=== PATIENT | male | born 1955 | race Caucasian/White ===

== ENCOUNTER 2023-09-08 14:49 | Outpatient (CLI) | payer BC, SELFPAY ==
--- NOTE | ~2023-09-08 | MR_ITS ---
EXAMINATION: MR lumbar spine wo/w con DATE: 09/08/2023 16:08 INDICATION: Lumbar vertebral fracture TECHNIQUE: Magnetic resonance imaging (MRI) of the lumbar spine was performed without and with 16 mL Multihance intravenous contrast. Sequences included sagittal T2-weighted FSE, sagittal T2-weighted FS FSE, and sagittal and axial T1-weighted FSE. Postcontrast sequences included axial T2-weighted FSE, sagittal T1-weighted FSE, and axial and sagittal T1-weighted FS FSE. COMPARISON: None FINDINGS: Alignment is normal. Chronic appearing mild likely physiologic anterior wedging at T12 and L1. There are a few small Schmorl's nodes along the endplates with a few lumbar and lower thoracic vertebral dayan dies. There are geographic regions of increased T2 signal and loss of T1 marrow fat signal involving the right posterior aspect of the L4 vertebral body and extending into the right pedicle, lamina and transverse process. There appears be associated cortical erosion at the pedicle and base of the trans verse processes. There is enhancement around the periphery of the lesion with central nonenhancing re gions. There is a larger lesion with similar signal and enhancement characteristics which fills the S 1 vertebral body and extending small distance into the right sacral ala and more extensively into the left sacral ala or extends short distance more caudally into the sacral ala associated with S2. Low signal intensity likely pathologic fracture line at the left side of the sacral ala at the level of S 1. There also appears to be a discontinuity and mild depression of a portion of the superior endplate of S1. Although the regions of enhancement about the L4, L4-L5 and L5-S1 disc spaces there does not appear to be abnormal increased signal or enhancement is be expected for discitis and the bone lesion s are much more concerning for malignancy, specifically metastatic disease. There is extraosseous ext ension of enhancing soft tissue about the L4 pedicle which exerts mass effect upon the right side of the thecal sac at this level. No epidural fluid collection to suggest epidural abscess. There is mode rate to severe right-sided predominant disc height loss at L4-L5 and mild disc height loss at remaini ng levels from T11-T12 through L5-S1. The conus medullaris terminates at T12-L1. There is normal sign al in the caudal spinal cord. No abnormally enhancing intrathecal lesions. There are multiple T2 hype rintense nonenhancing cyst at the visualized portion of the right kidney. Partially visualized bilate ral peripherally enhancing centrally nonenhancing bilateral adrenal masses also consistent with metas tatic disease. The following disc levels are specifically discussed: T12-L1: The disc does not extend beyond the endplate margin. There is mild bilateral facet joint oste oarthritis. There is no neural foraminal stenosis. There is no central canal stenosis. L1-L2: Disc is mildly bulging. There is mild bilateral facet joint osteoarthritis. There is normal bi lateral neural foraminal stenosis. There is mild central canal stenosis. L2-L3: Disc is mildly bulging. There is mild right facet joint osteoarthritis. There is mild bilatera l neural foraminal stenosis. There is minimal central canal stenosis. L3-L4: Disc is bulging. There is mild bilateral facet joint osteoarthritis. There is mild to moderate bilateral neural foraminal stenosis. There is mild central canal stenosis. L4-L5: Disc is bulging. There is mild left and moderate right facet joint osteoarthritis. As previous noted there is enhancing soft tissue extending medially from the L4 pedicle which contributes to mil d central canal stenosis, moderate right-sided neural foraminal stenosis and moderate stenosis of the right lateral recess cephalad to the neural foramen where it exerts mass effect upon the traversing right L4 nerve root. There is mild left neural foraminal stenosis. L5-S
== END 2023-09-08 14:50 | disposition home or self-care (01) ==
PROVIDERS: PCP Family Medicine; Visit Provider Family Medicine
DX: S32.009A Unspecified fracture of unspecified lumbar vertebra, initial encounter for closed fracture (principal); X58.XXXA Exposure to other specified factors, initial encounter; M47.896 Other spondylosis, lumbar region; D35.01 Benign neoplasm of right adrenal gland; D35.02 Benign neoplasm of left adrenal gland
CPT/HCPCS: 72158; A9577

== ENCOUNTER 2023-09-21 09:22 | Outpatient (CLI) | payer BC, SELFPAY ==
--- NOTE | ~2023-09-21 | NM_ITS ---
EXAMINATION: NM bone scan whole body DATE: 09/21/2023 12:59 INDICATION: Malignant neoplasm of the lung TECHNIQUE: 25.7 mCi Tc-99m HDP was administered intravenously. Delayed whole-body scintigrams were o btained. COMPARISON: Lumbar spine MRI dated 09/08/2023 and multiple outside institution CT studies dated 09/06 FINDINGS: There is increased uptake associated with fractures of the right transverse process of L4 and left tr ansverse process of L5 as well as at the large lytic lesion with pathologic fracture of S1 which exte nds into the left sacral ala. No other foci of abnormal bone uptake identified. IMPRESSION: 1. Increased uptake associated with the previous noted fractures at the lower lumbar spine and upper sacrum which are associated with enhancing bone lesions suspicious for malignancy and pathologic frac ture on prior CT and MRI. No other suspicious bone lesions identified although in the absence of frac ture, bone scan can be insensitive for lytic bone lesions. Reviewed, dictated and finalized at location A. FIC SAFETY ADMINISTRATOR IMPRESSION: 1. Increased uptake associated with the previous noted fractures at the lower l umbar spine and upper sacrum which are associated with enhancing bone lesions s uspicious for malignancy and pathologic fracture on prior CT and MRI. No other suspicious bone lesions identified although in the absence of fracture, bone sc an can be insensitive for lytic bone lesions.
== END 2023-09-21 09:23 | disposition home or self-care (01) ==
PROVIDERS: PCP Family Medicine; Visit Provider Internal Medicine Hematology & Oncology
DX: C34.90 Malignant neoplasm of unspecified part of unspecified bronchus or lung (principal)
CPT/HCPCS: 78306; A9503

== ENCOUNTER 2023-09-25 13:46 | Outpatient (CLI) | payer BC, SELFPAY ==
[2023-09-25 14:16] LABS: Basophils Percent Auto 0.6 % (0.2-1.2); Eosinophils Absolute Auto 0.2 K/mm3 (0-0.3); Eosinophils Percent Auto 3.2 % (0-4.4); Hematocrit 33.1 % (42.0-52.0); Hemoglobin 10.5 g/dL (14.0-18.0); Immature Granulocyte Absolute 0.05 K/mm3 (0.00-0.031); Immature Granulocyte Percent A 0.7 % (0-0.5); Lymphocytes Absolute Auto 1.09 K/mm3 (0.9-3.2); Lymphocytes Percent Auto 15.2 % (18.3-44.2); Mean Corpuscular HGB Conc 31.7 g/dl (32-36); Mean Corpuscular Hemoglobin 29.8 pg (26-34); Mean Platelet Volume 9.8 fl (7.4-10.4); Monocytes Absolute Auto 0.7 K/mm3 (0.1-0.6); Monocytes Percent Auto 10.1 % (2.6-8.5); Neutrophils Percent Auto 70.2 % (45.5-73.1); Platelet Count Result 155 k/mm3 (150-375); Red Blood Count 3.52 M/mm3 (4.6-6.20); Red Cell Distribution Width 14.6 % (11.5-14.5); White Blood Count 7.2 K/mm3 (4.5-10.0)
[2023-09-25 14:27] LABS: Partial Thromboplastin Time 31.2 SECONDS (22.3-36.8); Prothrombin Time 13.1 Seconds (11.1-14.7)
== END 2023-09-25 13:47 | disposition home or self-care (01) ==
LOC: ANHSURGERY 13:52
PROVIDERS: PCP Family Medicine; Visit Provider Surgery
DX: C34.90 Malignant neoplasm of unspecified part of unspecified bronchus or lung (principal); Z01.818 Encounter for other preprocedural examination
CPT/HCPCS: 36415; 85025; 85610; 85730

== ENCOUNTER 2023-09-25 14:24 | Outpatient (CLI) | payer BC, SELFPAY ==
--- NOTE | ~2023-09-25 | MR_ITS ---
EXAMINATION: MR brain/brain stem wo/w con DATE: 09/25/2023 15:43 INDICATION: Malignant neoplasm of lung. TECHNIQUE: Magnetic resonance imaging (MRI) of the brain and brainstem was performed without and with 16 mL MultiHance intravenous contrast. COMPARISON: None. FINDINGS: There is a 5 mm enhancing mass in left temporal lobe, consistent with metastatic disease. T here are scattered areas of nonspecific increased T2-weighted signal intensity in the cerebral white matter, which is within normal limits for the patient's age. There is no acute ischemic infarct or in tracranial hemorrhage. The ventricles are normal in size. The paranasal sinuses are clear. There are likely changes of ocular lens replacement surgeries. The mastoid air cells are normal. IMPRESSION: 1. Enhancing mass in left temporal lobe, consistent with metastatic disease. Reviewed, dictated and finalized at location E. STANT MERCHANDISE MANAGER
== END 2023-09-25 14:25 | disposition home or self-care (01) ==
PROVIDERS: PCP Family Medicine; Visit Provider Internal Medicine Hematology & Oncology
DX: C34.90 Malignant neoplasm of unspecified part of unspecified bronchus or lung (principal)
CPT/HCPCS: 70553; A9577

== ENCOUNTER 2023-09-28 03:09 | Day surgery (SDC) | payer BC, SELFPAY ==
--- NOTE | 2023-09-24 09:22 | PC.NURSE ---
Report to the Outpatient Waiting Room, entrance under the green pavilion located off [facility], at time __1130 on date __09/28/23 . Planned Procedure Time: _1330 . Time changes happen often and if your time is changed the preop area will call you the afternoon before. - You and your visitor will be asked to self-screen and do not enter if you have any COVID symptoms. - A mask is optional within the hospital at this time. Patients may have clear liquids (water, carbonated beverages, clear teas, apple juice) until 3 hours prior to surgery (1030)with a maximum of 20 ounces. - No food from midnight until time of surgery Take the following medications with a SIP of water the morning of surgery: __AMLODIPINE,HYDROCODONE IF NEEDED, UMECLIDINIUM INHALER DO NOT STOP ANY OF YOUR OTHER PRESCRIPTION MEDICATIONS PRIOR TO SURGERY ?EXCEPT THE FOLLOWING Medications to discontinue per physician ___ALL VITAMINS AND SUPPLEMENTS 3 DAYS PRE OP.LAST DOSE 09/24/23 Please no make-up, nail slovenian, hairspray, perfume, deodorant, or body powder the day of surgery. No jewelry (including any body piercings) or valuables the day of surgery, leave them at home. Please take a shower or bath the night before, or the morning of, surgery with an antibacterial soap. Wear comfortable, loose fitting clothing. Children are encouraged to wear pajamas. - Jewelry must be removed prior to entering the operating room. Rings and piercings that are not removed may be cut off. - The hospital will not accept responsibility for valuables. - Please leave all valuables, including medications, at home the day of surgery. If you are going home after surgery, a licensed tram driver must drive you home. - NO public transportation without another adult if you receive anesthesia. - We recommend that an adult stay with you for 24 hours following discharge. - We also recommend that you do not drive, make important decision, drink alcoholic beverages, or take any drugs that were not prescribed by your health care provider for at least 24 hours after your discharge time. Follow any additional instructions given to you from your surgeon. If you or anyone in your household have experienced Covid symptoms in the past week, please notify your surgeon or the nurse liaison at the phone number below for possible testing. Telephone instructions given to _PATIENT and asked if any additional questions and then verbalized understanding. Patient advised to call surgeon office or pre surgery nurse liaison [phone] if any additional questions.
[2023-09-24 09:30] VITALS: BMI 28.1
--- NOTE | ~2023-09-28 | XR_ITS ---
EXAMINATION: XR chest port-a-cath/central INDICATION: Port-A-Cath insertion TECHNIQUE: Portable AP chest at 1345 hours COMPARISON: None available FINDINGS: A right internal jugular Port-A-Cath ends with its tip in the distal superior vena cava. No pleural effusion or pneumothorax. There are minimal airspace opacities of the left lung base. The ca rdiomediastinal silhouette is normal. IMPRESSION: 1. Right internal jugular Port-A-Cath ending in the distal superior vena cava. No pneumothorax. 2. Left basilar airspace opacity, likely known malignancy. Reviewed, dictated and finalized at location B. CHILD
--- NOTE | ~2023-09-28 | XR_ITS ---
EXAMINATION: XR fl guide central line place DATE: 09/28/2023 13:31 INDICATION: Port placement. TECHNIQUE: 2 intraoperative fluoroscopic views of the chest were obtained. I was not present. Fluoros copy exposure time was 30 seconds. COMPARISON: None. FINDINGS: There is a right internal jugular port with tip in superior vena cava. IMPRESSION: 1. Port tip in superior vena cava. Reviewed, dictated and finalized at location A. ATIONS MANAGER
--- NOTE | 2023-09-28 07:30 | PM.IMHP ---
H&P: HPI History of Present Illness Date/Time: 09/28/23 07:30 Chief Complaint: Metastatic lung cancer Narrative: The patient is a 67-year-old male recently diagnosed with metastatic lung cancer. The patient is going to undergo chemotherapy and is presenting for access. The patient is also going to undergo palliative radiation to bone metastases in the lumbar, spine area. The patient any previous central venous catheterization. Review of Systems Review of Systems: All systems reviewed & are unremarkable except as noted in HPI and below PMFSH Past Medical History Medical History Abdominal wall bulge Adrenal mass Blood in urine Lumbar vertebral fracture Metastatic disease Olecranon bursitis, right elbow Pulmonary nodule Surgical History Surgical History History of kidney surgery 2000 per patient History of major abdominal surgery Family History Family History Father Family history of malignant neoplasm of thyroid Other Carcinoma of colon HLD (hyperlipidemia) Hypertension Social History Social History Smoking packs per day: 1 Smoking cigarettes per day: 20.0 Years smoked: 40 Smoking pack-years: 40.00 Smoking status: Former smoker Tobacco type: cigarettes Smoking end date: 10/19/19 Additional smoking assessment comments: Quit in 2019 Alcohol intake: current Drinks per week: 3 Substance use: never Substance use type: does not use Living arrangements: with family Spiritual care concerns: No Meds Home Medications and Allergies Home Medications Medication Instructions Recorded Confirmed Type cholecalciferol (vitamin D3) 125 125 mcg PO DAILY 02/14/22 09/24/23 History mcg (5,000 unit) capsule famotidine 40 mg tablet 40 mg PO DAILY #90 tabs 06/11/22 09/24/23 Rx allopurinol 300 mg tablet 300 mg PO DAILY 09/07/23 09/24/23 History ibuprofen 800 mg tablet 800 mg PO Q6H PRN pain #60 tabs 09/07/23 09/24/23 Rx tamsulosin 0.4 mg capsule 0.4 mg PO DAILY 09/07/23 09/24/23 History tramadol 100 mg tablet 100 mg PO Q6H PRN pain #90 tabs 09/07/23 09/24/23 Rx valsartan 80 mg tablet 80 mg PO DAILY 09/07/23 09/24/23 History albuterol sulfate 90 mcg/actuation 2 inh inhalation Q4H PRN shortness 09/16/23 09/24/23 Rx aerosol inhaler of breath or wheezing #8.5 grams umeclidinium 62.5 mcg-vilanterol 1 inh inhalation DAILY #60 ea 09/16/23 09/24/23 Rx 25 mcg/actuation powdr for inhalation amlodipine 5 mg tablet 5 mg PO DAILY 09/24/23 09/24/23 History hydrocodone 10 mg-acetaminophen 1 tablet PO Q6H PRN Pain 09/24/23 09/24/23 History 325 mg tablet Allergies Allergy/AdvReac Type Severity Reaction Status Date / Time morphine Allergy Unknown Violent Verified 09/24/23 09:08 Vjksrlw-VQA-LcW Reductase AdvReac Intermediate myalgia Verified 09/24/23 09:08 Inhibitor 1VIOXX 2MSO4 Allergy Unknown Unknown Uncoded 09/24/23 09:08 Exam Const: General: cooperative, no acute distress, ill appearing and uncomfortable HENMT: Head: normal to inspection, normocephalic and atraumatic Neck: Neck: normal visual inspection, full ROM and no lymphadenopathy Chest: Chest palpation & inspection: normal inspection of the chest Resp: Auscultation: diminished lung sounds Cardio: Rate: regular rate Rhythm: regular rhythm GI: Inspection: normal to inspection Assessment and Plan Assessment and plan (1) Metastatic lung cancer (metastasis from lung to other site): Code(s): C34.90 - Malignant neoplasm of unspecified part of unspecified bronchus or lung Status: Acute Assessment and Plan: will set up for MediPort placement prior to initiation of chemotherapy
[2023-09-28] MEDS: KETOROLAC 15 MG/ML VIAL (*BKC) IV PUSH (12:01)
[2023-09-28 12:04] VITALS: BP 140/78; PULSE 71; RESP 20; TEMP 36.6; O2SAT 90
--- NOTE | 2023-09-28 12:04 | SUR.PREOP ---
Moving self up in bed caused patient to be very short of breath. At rest O2 sat 89-90% Placed on O2 2L NC. Informed Dr Gunn.
--- NOTE | 2023-09-28 12:12 | WPDANESEPPF ---
Anes - Initial Pre Proc Eval Procedure: Operation Date: 09/28/23 13:30 Proposed Procedures p Insertion Lucila Cath - Izzy Blanton MD Date/Time: 09/28/23 12:12 Surgeon: Izzy Blanton MD Pre Op Diagnosis: Lung Ca Patient Data Age: 67 Gender: M Height: 1.73 m Weight: 85.9 kg Last Vital Signs Temp 36.6 C 09/28/23 12:04 Pulse 71 09/28/23 12:04 Resp 20 09/28/23 12:04 BP 140/78 09/28/23 12:04 Pulse Ox 90 09/28/23 12:04 O2 Del Method Room Air 09/28/23 12:04 Allergies Allergy/AdvReac Type Severity Reaction Status Date / Time morphine Allergy Unknown Violent Verified 09/28/23 11:34 Msrursj-SSE-CmT Reductase AdvReac Intermediate myalgia Verified 09/28/23 11:34 Inhibitor 1VIOXX 2MSO4 Allergy Unknown Unknown Uncoded 09/28/23 11:34 Home Medications Medication Instructions Recorded Confirmed Type cholecalciferol (vitamin D3) 125 125 mcg PO DAILY 02/14/22 09/24/23 History mcg (5,000 unit) capsule famotidine 40 mg tablet 40 mg PO DAILY #90 tabs 06/11/22 09/24/23 Rx allopurinol 300 mg tablet 300 mg PO DAILY 09/07/23 09/24/23 History ibuprofen 800 mg tablet 800 mg PO Q6H PRN pain #60 tabs 09/07/23 09/24/23 Rx tamsulosin 0.4 mg capsule 0.4 mg PO DAILY 09/07/23 09/24/23 History tramadol 100 mg tablet 100 mg PO Q6H PRN pain #90 tabs 09/07/23 09/24/23 Rx valsartan 80 mg tablet 80 mg PO DAILY 09/07/23 09/24/23 History albuterol sulfate 90 mcg/actuation 2 inh inhalation Q4H PRN shortness 09/16/23 09/24/23 Rx aerosol inhaler of breath or wheezing #8.5 grams umeclidinium 62.5 mcg-vilanterol 1 inh inhalation DAILY #60 ea 09/16/23 09/24/23 Rx 25 mcg/actuation powdr for inhalation amlodipine 5 mg tablet 5 mg PO DAILY 09/24/23 09/24/23 History hydrocodone 10 mg-acetaminophen 1 tablet PO Q6H PRN Pain 09/24/23 09/24/23 History 325 mg tablet Patient hx anesthesia problems: none Family hx anesthesia problems: none Results Review: All pre-operative results and documents have been reviewed as part of the pre-operative evaluation. [facility] Past Medical History Medical History Abdominal wall bulge Adrenal mass Blood in urine Lumbar vertebral fracture Metastatic disease Olecranon bursitis, right elbow Pulmonary nodule Surgical History Surgical History History of kidney surgery 2000 per patient History of major abdominal surgery Family History Family History Father Family history of malignant neoplasm of thyroid Other Carcinoma of colon HLD (hyperlipidemia) Hypertension Social History Social History Smoking packs per day: 1 Smoking cigarettes per day: 20.0 Years smoked: 40 Smoking pack-years: 40.00 Smoking status: Former smoker Tobacco type: cigarettes Smoking end date: 10/19/19 Additional smoking assessment comments: Quit in 2019 Alcohol intake: current Drinks per week: 3 Substance use: never Substance use type: does not use Living arrangements: with family Spiritual care concerns: No Anes - Eval Final PreProcedure Day of Procedure 09/28/23 12:12 Patient weight: overweight Heart: regular rate and rhythm Lungs: decreased breath sounds Airway: Mallampati scale class II Neurological: alert and oriented Last oral intake: >/= 8 hours ASA classification: IV Emergent: no Anesthetic plan: proceed Anesthesia type and monitoring: general GIVS and standard monitoring Results Review: All pre-operative results and documents have been reviewed as part of the pre-operative evaluation. Informed Consent: The patient's anesthetic plan and its attendant risks and benefits were discussed with the patient/family/POA. Questions were solicited and answers provided to the satisfaction of the patient/family/POA.
--- NOTE | 2023-09-28 12:36 | WPDHPUPDATE1 ---
History and Physical Update Update Date/Time: 09/28/23 12:36 History and Physical has been reviewed, including an updated exam of the patient. There are NO changes in the patient's condition. Risks, benefits, and alternatives have been discussed and questions answered. Patient agrees to proceed with procedure.
--- NOTE | 2023-09-28 12:37 | WPDHPUPDATE1 ---
History and Physical Update Update Date/Time: 09/28/23 12:37 History and Physical has been reviewed, including an updated exam of the patient. There are NO changes in the patient's condition. Risks, benefits, and alternatives have been discussed and questions answered. Patient agrees to proceed with procedure.
[2023-09-28] MEDS: LACTATED RINGERS 1,000 ML 30 ML IV CONT (12:43)
[2023-09-28] MEDS: ceFAZolin 2 GM/D5W 50 ML 2 GM/50 ML BAG IVPB (12:50)
[2023-09-28] MEDS: BUPIVACAINE/EPINEPHRINE 0.5% 50 ML VIAL 15 ML INFILTRATE (13:10)
[2023-09-28 13:40] VITALS: BP 122/67; PULSE 90; RESP 12; O2SAT 98
--- NOTE | 2023-09-28 13:40 | W.PM.PROC2 ---
Procedure Note - Detailed Date of Procedure 09/28/23 Pre-op Diagnosis metastatic lung cancer Post-op Diagnosis Same Procedure Performed placement of right internal jugular venous access device under both ultrasound and fluroscopic guidance Surgeon Izzy Blanton MD Anesthesia MAC and Local Indications 67 y/o M c metastatic lung cancer needing access for chemotx Findings 1st stick right internal jugular vein under ultrasound guidance Description of Procedure Patient was brought into the operating room and placed in the supine position. After adequate induction of mac anesthesia, the patient was prepped and draped in normal sterile fashion. Time-out was then done to verify the patient's identity, as well as the procedure being performed. I used the ultrasound to gain access into the right internal jugular vein. Once access was gained, I placed the guidewire in the vein and confirmed proper positioning using fluoroscopy. I then locally anesthetized an area in the right chest. I then made an incision including making a subcutaneous pocket inferiorly to allow placement of the port itself. I proceeded to tunnel the catheter from the chest to the right neck insertion site. I then placed a dilating sheath over the guidewire into the right internal jugular vein via sterile Seldinger technique. This was once again done and confirmed via fluoroscopic guidance. I then removed the dilator and the guidewire, now just leaving the sheath in the vein. I then fed the previously flushed catheter into the right internal jugular vein under fluoroscopic guidance. At approximately 24 cm, the catheter was noted to be near the atrial caval junction. I then peeled away the sheath, now just leaving the catheter in the vein. I then was able to easily draw and flush from the catheter. The catheter was cut to fit and attached to the port itself. The port was placed into the previously made subcutaneous pocket and sutured in with 0 Ethibond suture. Final fluoroscopic view showed the termination of the catheter at the atrial caval junction with a nice smooth curvature back to the port itself. I was able to gain access to the port with a Booker needle and was able to easily draw and flush from the port. I then flushed 4 cc of a final heparin flush into the port. The incision was closed with 3 0 Vicryl suture in the subcutaneous tissue and the skin was closed with 4 O Monocryl subcuticular suture. Dermabond was then placed on wound. The patient tolerated the procedure well and will be sent to the recovery room in stable condition. Implants RIJ VAD Estimated Blood Loss 10 Pathology None sent Complications No immediate complications Condition Stable Disposition PACU [facility] Billing Surgery - Charge Forward: Surgery Billing
--- NOTE | 2023-09-28 14:03 | SUR.PHASEII ---
PORT CXR RESULTS GOOD FOR PLACEMENT.
[2023-09-28 14:10] VITALS: BP 129/59; PULSE 82; RESP 12; O2SAT 99
[2023-09-28 14:40] VITALS: BP 148/67; PULSE 64; RESP 12; O2SAT 94
[2023-09-28 15:10] VITALS: BP 152/79; PULSE 72; RESP 12
--- NOTE | 2023-09-30 17:08 | WPDPFTINT ---
PFT Procedure Performed PFT Procedure Performed Spirometry with Pre/Post Bronchodilator Plethysmography (Lung Vol) Diffusing Cap (DLCO) Flow Vol Loop PFT Interpretation This is a pulmonary function test with pre and post-bronchodilator spirometry, plethysmography and diffusing capacity. The test was performed and results interpreted in accordance with the 2019 and 2005 ATS/ERS Task Force guidelines respectively using the Global Lung Function Initiative-2012 reference equations. Patient demonstrated good effort and cooperation. Reproducibility criteria were met. The quality of the pre bronchodilator spirometry maneuver was Grade A and post bronchodilator spirometry maneuver was Grade B. Findings: Spirometry: There is decreased maximal expiratory airflow at all lung volumes with concave expiratory flow tracing. The contour the inspiratory flow tracing is normal. The pre bronchodilator FVC is 4.17 L, 102% predicted. The pre bronchodilator FEV1 is 1.89 L, 60% predicted. The pre bronchodilator FEV1: FVC ratio is 45%. The post bronchodilator FVC is 4.31 L, representing a 4% increase. The post bronchodilator FEV1 is 1.92 L, representing a 2% increase. The post bronchodilator FEV1: FVC ratio is 45%. Plethysmography: The total lung capacity is 7.03 L, 106% predicted. The functional residual capacity is 4.42 L, 127% predicted. The residual volume is 2.86 L, 125% predicted. Diffusing capacity: The diffusing capacity unadjusted for hemoglobin and carboxyhemoglobin is 9.6, 37% predicted. The diffusing capacity adjusted for alveolar volume is 1.58, 38% predicted. Impression: There is a moderate obstructive abnormality without significant improvement after inhaling a single dose of albuterol. The lung volumes are normal. The diffusing capacity unadjusted for hemoglobin and carboxyhemoglobin is severely decreased and remains severely decreased when adjusted for alveolar volume. There are no prior studies for comparison
== END 2023-09-28 15:20 | disposition home or self-care (01) ==
LOC: ANHSURGERY 13:37 → ANHCPREHAB 09-30 14:05
PROVIDERS: PCP Family Medicine; Visit Provider Surgery
PROC: (CPT 36561; principal; 2023-09-28 13:30)
DX: C34.90 Malignant neoplasm of unspecified part of unspecified bronchus or lung (principal); C79.51 Secondary malignant neoplasm of bone; Z87.891 Personal history of nicotine dependence; Z79.51 Long term (current) use of inhaled steroids
CPT/HCPCS: 36561; 77001; 94060; 94726; 94729; C1788; J0690; J1644; J1885; J2704; J3010; J7030; J7120

== ENCOUNTER 2023-09-30 06:50 | Outpatient (CLI) | payer BC, SELFPAY ==
--- NOTE | 2023-09-30 14:51 | PCRCNOTE ---
PT CAME IN FOR PFT AND 6 MINUTE WALK, PT UNABLE TO WALK DUE TO CA TO SPINE. SAO2 97% ON ROOM AIR AT REST. DR NORMAN'S OFFICE NOTIFIED.
--- NOTE | 2023-09-30 17:11 | PFT_ITS ---
This report was moved to the correct visit on 10/21/2023. The original report was signed by Joselo Robles MD on 09/30/231711. PFT Procedure Performed PFT Procedure Performed Spirometry with Pre/Post Bronchodilator Plethysmography (Lung Vol) Diffusing Cap (DLCO) Flow Vol Loop PFT Interpretation This is a pulmonary function test with pre and post-bronchodilator spirometry, plethysmography and diffusing capacity. The test was performed and results interpreted in accordance with the 2019 and 2005 ATS/ERS Task Force guidelines respectively using the Global Lung Function Initiative-2012 reference equations. Patient demonstrated good effort and cooperation. Reproducibility criteria were met. The quality of the pre bronchodilator spirometry maneuver was Grade A and post bronchodilator spirometry maneuver was Grade B. Findings: Spirometry: There is decreased maximal expiratory airflow at all lung volumes with concave expiratory flow tracing. The contour the inspiratory flow tracing is normal. The pre bronchodilator FVC is 4.17 L, 102% predicted. The pre bronchodilator FEV1 is 1.89 L, 60% predicted. The pre bronchodilator FEV1: FVC ratio is 45%. The post bronchodilator FVC is 4.31 L, representing a 4% increase. The post bronchodilator FEV1 is 1.92 L, representing a 2% increase. The post bronchodilator FEV1: FVC ratio is 45%. Plethysmography: The total lung capacity is 7.03 L, 106% predicted. The functional residual capacity is 4.42 L, 127% predicted. The residual volume is 2.86 L, 125% predicted. Diffusing capacity: The diffusing capacity unadjusted for hemoglobin and carboxyhemoglobin is 9.6, 37% predicted. The diffusing capacity adjusted for alveolar volume is 1.58, 38% predicted. Impression: There is a moderate obstructive abnormality without significant improvement after inhaling a single dose of albuterol. The lung volumes are normal. The diffusing capacity unadjusted for hemoglobin and carboxyhemoglobin is severely decreased and remains severely decreased when adjusted for alveolar volume. There are no prior studies for comparison This report may have been done utilizing a voice recognition system. Attempts have been made to correct errors. However, there may be uncorrected grammatical, spelling, and recognition errors present. Report Initialized date/time: Joselo Robles MD 09/30/231711 Electronically signed by: Joselo Robles MD 09/30/231710 [facility]
== END 2023-09-30 06:54 | disposition home or self-care (01) ==
LOC: ANHPFT 10-22 10:58
PROVIDERS: PCP Family Medicine; Visit Provider Internal Medicine Pulmonary Disease
DX: J44.9 Chronic obstructive pulmonary disease, unspecified (principal); R94.2 Abnormal results of pulmonary function studies
CPT/HCPCS: 94060; 94726; 94729

== ENCOUNTER 2023-10-02 09:51 | Outpatient (CLI) | payer BC, SELFPAY ==
--- NOTE | ~2023-10-02 | US_ITS ---
EXAMINATION: US biopsy lymph node DATE: 10/02/2023 10:56 INDICATION: Malignant neoplasm of lung. Right axillary lymphadenopathy. TECHNIQUE: The procedure including the risks, benefits, and alternatives was discussed with the patie nt. Risks discussed included bleeding and infection. The patient understood the risks and agreed to p roceed. The skin overlying the right axilla was prepped and draped in usual sterile fashion. Anesthe tic was administered with 1% lidocaine subcutaneously. An 18 gauge core biopsy needle was then used to obtain 3 core biopsy specimens under continuous sonographic guidance. The entry site was cleaned a nd dressed. There were no immediate complications. FINDINGS: Ultrasound images demonstrate the needle in a prominent lymph node in right axilla.. IMPRESSION: 1. Ultrasound-guided core needle biopsy of a prominent right axillary lymph node. If this biopsy is n egative for malignancy, CT-guided biopsy of an adrenal mass would be recommended. Reviewed, dictated and finalized at location A. [facility] IMPRESSION: 1. Ultrasound-guided core needle biopsy of a prominent right axillary lymph nod e. If this biopsy is negative for malignancy, CT-guided biopsy of an adrenal ma ss would be recommended.
== END 2023-10-02 09:52 | disposition home or self-care (01) ==
PROVIDERS: PCP Family Medicine; Visit Provider Internal Medicine Hematology & Oncology
DX: C34.90 Malignant neoplasm of unspecified part of unspecified bronchus or lung (principal)
CPT/HCPCS: 38505; 76942; 88305; 88342

== ENCOUNTER 2023-10-13 09:58 | Outpatient (CLI) | payer BC, SELFPAY ==
[2023-10-13 10:13] LABS: Kit Draw Collected
== END 2023-10-13 09:59 | disposition home or self-care (01) ==
LOC: ANHLAB 09:59
PROVIDERS: PCP Family Medicine; Visit Provider Internal Medicine Hematology & Oncology
DX: C34.90 Malignant neoplasm of unspecified part of unspecified bronchus or lung (principal)
CPT/HCPCS: 36415

== ENCOUNTER 2023-10-14 09:23 | Emergency (ER) | payer BC, SELFPAY ==
--- NOTE | ~2023-10-14 | CT_ITS ---
EXAMINATION: CT abdomen pelvis w con DATE: 10/14/2023 11:28 INDICATION: Non localized abdominal pain TECHNIQUE: Computed tomography (CT) of the abdomen and pelvis was performed with 100 mL Omnipaque-350 intravenous contrast. Automated exposure control and iterative reconstruction technique were employe d. The dose-length product was 557.17 mGy-cm. COMPARISON: Outside institution CT dated 09/06/2023 FINDINGS: Mild emphysema and scattered discoid atelectasis in bilateral lower lung zones. There is a 3.7 x 2.2 cm left lower lobe mass with lobular margins and some internal cavitation which without significant i nterval change since outside institution CT dated 09/06/2023 and which concerning for lung cancer. He art size is normal. There are several centrally low attenuation likely necrotic lymph nodes in the pe ricardial, anterior paracardial and supraphrenic fat suspicious for metastatic disease which have inc reased slightly in size since the prior study. No significant interval change in bilateral lobular centrally low-attenuation renal masses consistent with metastatic disease. Liver, gallbladder and spleen are normal. Again seen are bilateral low-atte nuation renal cysts. There is moderate asymmetric atrophy of the right kidney relative to the left wh ich is likely related to chronic ischemia with severe stenosis seen at the origin of the right renal artery. There are dystrophic calcifications throughout the pancreas consistent with sequela of chroni c pancreatitis. Small duodenal diverticulum posterior to the head of the pancreas. There is moderate colonic diverticulosis with a sigmoid and descending colon predominance without adj acent inflammatory stranding to suggest diverticulitis. Normal appendix. There is fluid scattered thr oughout nonobstructed small bowel as well as in the proximal colon consistent with nonspecific diarrh ea. No significant change in a 2.8 x 2.1 cm mass in the right trigonal region of the bladder suspicio us for malignancy either primary or metastatic. There are multiple centrally low-density nodules likely representing metastatic lymphadenopathy in th e abdomen and pelvis including in the mesentery and in the subphrenic and retroperitoneal fat. No alina e intraperitoneal gas or fluid. Postoperative change of a likely prior right-sided ventral hernia rep air. Osteonecrosis at the right femoral head. There are several scattered lytic bone lesions consiste nt with osseous metastatic disease, the largest 2 with associated pathologic fractures at the right p osterior vertebral body and right-sided posterior elements of L4 and the second in the left side of t he vertebral body and left sacral ala of S1. Additional small lytic lesion at the anterior left aceta bulum. The bone lesions all appear to have progressed since the prior study. IMPRESSION: 1. Fluid in the nonobstructed small bowel and colon consistent with nonspecific diarrhea. Correlate f or enteritis. 2. Left lower lobe mass consistent with primary bronchogenic carcinoma with multiple centrally necrot ic appearing lymph nodes in the visualized lower, abdomen and pelvis along with unchanged bilateral a drenal masses and a few scattered lytic bone lesions all consistent with metastatic disease. A few of the lymph nodes as well as the lytic bone lesions appear to have progressed since the prior study. 3. Unchanged 2.8 x 2.1 cm mass in right trigonal region of the bladder suspicious for malignancy eith er primary or metastatic. 4. Moderate atrophy of the right kidney likely sequela of severe stenosis at the origin of the right renal artery. Reviewed, dictated and finalized at location A. [facility] PHYSICIST IMPRESSION: 1. Fluid in the nonobstructed small bowel and colon consistent with nonspecific diarrhea. Correlate for enteritis. 2. Left
[2023-10-14 09:26] VITALS: BP 108/68; PULSE 95; RESP 20; TEMP 36.9; O2SAT 100
[2023-10-14 10:44] LABS: Basophils Percent Auto 0.2 % (0.2-1.2); Eosinophils Absolute Auto 0.1 K/mm3 (0-0.3); Eosinophils Percent Auto 0.8 % (0-4.4); Hematocrit 28.4 % (42.0-52.0); Hemoglobin 8.8 g/dL (14.0-18.0); Immature Granulocyte Absolute 0.06 K/mm3 (0.00-0.031); Immature Granulocyte Percent A 0.7 % (0-0.5); Lymphocytes Absolute Auto 0.96 K/mm3 (0.9-3.2); Lymphocytes Percent Auto 11.5 % (18.3-44.2); Mean Corpuscular Hemoglobin 28.7 pg (26-34); Mean Corpuscular Volume 92.5 fl (80-100); Monocytes Absolute Auto 0.6 K/mm3 (0.1-0.6); Neutrophils Absolute Auto 6.7 K/mm3 (1.3-6.7); Neutrophils Percent Auto 79.8 % (45.5-73.1); Platelet Count Result 174 k/mm3 (150-375); Red Blood Count 3.07 M/mm3 (4.6-6.20); Red Cell Distribution Width 15.4 % (11.5-14.5); White Blood Count 8.4 K/mm3 (4.5-10.0)
[2023-10-14 10:45] VITALS: BP 120/68; PULSE 82; RESP 16; O2SAT 97
[2023-10-14] MEDS: fentaNYL CITRATE INJ (*CRX) 100 MCG/2 ML VIAL 50 MCG IV PUSH (10:49)
[2023-10-14] MEDS: ONDANSETRON INJ 4 MG/2 ML VIAL IV PUSH (10:49)
[2023-10-14] MEDS: SODIUM CHLORIDE 0.9% IV 1,000 ML 999 ML IV CONT (10:49)
[2023-10-14 10:54] LABS: Lactic Acid Reflex 1.8 mmol/L (0.7-2.0)
[2023-10-14 10:55] LABS: Alanine Aminotransferase 13 U/L (6-50); Albumin Level 3.4 g/dL (3.5-5.1); Alkaline Phosphatase 72 U/L (38-126); Anion Gap 7 mmol/L (8-16); Aspartate Amino Transferase 25 U/L (17-59); Bilirubin,Total 1.1 mg/dL (0.2-1.3); Blood Urea Nitrogen 24 mg/dL (9-20); Calcium 9.1 mg/dL (8.4-10.2); Carbon Dioxide 28 mmol/L (22-30); Chloride 100 mmol/L (98-107); Estimated CRCL calculation 61 ml/min; Estimated Glomerular Filt Rate > 60; Glucose 103 mg/dL (65-110); Lipase 47 U/L (23-300); Potassium 3.6 mmol/L (3.4-5.0); Sodium 135 mmol/L (137-145)
[2023-10-14 11:30] VITALS: BP 153/82; PULSE 80; RESP 16; TEMP 36.6; O2SAT 96
[2023-10-14 12:30] VITALS: BP 119/80; PULSE 89; RESP 18; O2SAT 97
[2023-10-14 13:30] VITALS: BP 122/72; PULSE 97; RESP 18; TEMP 36.5; O2SAT 96
--- NOTE | 2023-10-14 13:41 | ED.GENADULT ---
HPI - General Adult General Chief complaint: Nausea/Vomiting/Diarrhea Stated complaint: radiation yesterday, n/v/d Time Seen by Provider: 10/14/23 10:11 History of Present Illness HPI narrative: patient is a 67-year-old male who presents ER with nausea vomiting and diarrhea. Sudden onset last night. Patient reports he had his 1st treatment of radiation yesterday. He has metastatic lung cancer and has bony metastases that they are trying to radiates so he can have a vertebroplasty. 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 He also has a bladder malignancy that could be your a primary or a metastases from the lung cancer. Patient reports cramping pain to his abdomen diffusely. No alleviating factors. No syncope. Related Data Home Medications Medication Instructions Recorded Confirmed cholecalciferol (vitamin D3) 125 125 mcg PO DAILY 02/14/22 09/29/23 mcg (5,000 unit) capsule allopurinol 300 mg tablet 300 mg PO DAILY 09/07/23 09/29/23 tamsulosin 0.4 mg capsule 0.4 mg PO DAILY 09/07/23 09/29/23 valsartan 80 mg tablet 80 mg PO DAILY 09/07/23 09/29/23 amlodipine 5 mg tablet 5 mg PO DAILY 09/24/23 09/29/23 hydrocodone 10 mg-acetaminophen 1 tablet PO Q6H PRN Pain 09/24/23 09/29/23 325 mg tablet Allergies Allergy/AdvReac Type Severity Reaction Status Date / Time morphine Allergy Unknown Violent Verified 09/29/23 10:54 rofecoxib [From Vioxx] Allergy Unknown Verified 09/29/23 10:54 [id number] Reductase AdvReac Intermediate myalgia Verified 09/29/23 10:54 Inhibitor Review of Systems Review of Systems: All systems reviewed & are unremarkable except as noted in HPI and below Constitutional: Constitutional: Denies chills, Reports fatigue and Denies fever(s) ENT: Reports system reviewed and no additional complaints, except as documented Cardiovascular: Cardiovascular: Reports no additional cardiovascular complaints Respiratory: Respiratory: Reports no additional respiratory complaints Gastrointestinal: Gastrointestinal: Reports abdominal pain, Denies constipation, Denies heartburn, Reports diarrhea, Reports nausea and Reports vomiting Genitourinary: Genitourinary: Reports no additional male genitourinary complaints Musculoskeletal: Musculoskeletal: Reports no additional musculoskeletal complaints PMFSH Past Medical History Medical History (Updated 10/14/23 @ 13:43 by Garett Victoria MD) Abdominal wall bulge Adrenal mass Bilateral leg edema Blood in urine Lumbar vertebral fracture Metastatic disease Olecranon bursitis, right elbow Pulmonary nodule Surgical History Surgical History (Reviewed 09/29/23 @ 08:20 by Shanelle High [facility]) History of kidney surgery 2000 per patient History of major abdominal surgery Family History Family History Father Family history of malignant neoplasm of thyroid Other Carcinoma of colon HLD (hyperlipidemia) Hypertension Social History Social History (Updated 09/29/23 @ 08:21 by Shanelle High CMA) Smoking packs per day: 1 Smoking cigarettes per day: 20.0 Years smoked: 40 Smoking pack-years: 40.00 Smoking status: Former smoker Tobacco type: cigarettes Smoking end date: 10/19/19 Additional smoking assessment comments: Quit in 2019 Alcohol intake: current Drinks per week: 3 Substance use: never Substance use type: does not use Lack of Transportation: No Lack of Food: Never True Current Housing: I Have Housing Concerned About Future Housing: No Difficulty Paying Gas/Electric Bills: No Difficulty Paying for Meds: No Currently Unemployed: No Education: Don't Know Difficulty w/ Childcare or Family Care: No Living arrangements: with family Spiritual care concerns: No Exam Narrative: GENERAL: Fatigue-appearing, well-nourished, and in no acute distress. HEAD: Normocephalic, atraumatic. ENT: Mucous membranes moist. NECK: Supple
== END 2023-10-14 14:01 | disposition home or self-care (01) ==
PROVIDERS: Emergency Provider Emergency Medicine; PCP Family Medicine
DX: K52.1 Toxic gastroenteritis and colitis (principal); T45.1X5A Adverse effect of antineoplastic and immunosuppressive drugs, initial encounter; Z87.891 Personal history of nicotine dependence
CPT/HCPCS: 36415; 74177; 80053; 83605; 83690; 85025; 96361; 96374; 96375; 99284; J2405; J3010; J7030; Q9967

== ENCOUNTER 2023-11-04 07:13 | Outpatient (RCR) | payer BC, SELFPAY ==
[2023-11-04] VITALS (14 sets, daily range): BP systolic 106–129; BP diastolic 60–76; PULSE 67–81; RESP 16–18; TEMP 36.6–37.5; O2SAT 94–100; BMI 28.1
[2023-11-04] MEDS: ACETAMINOPHEN 325 MG TABLET 650 MG PO (07:49)
[2023-11-04] MEDS: diphenhydrAMINE HCl CAP 25 MG CAPSULE PO (07:49)
[2023-11-04] MEDS: SODIUM CHLORIDE 0.9% IV 250 ML 30 ML IV CONT (07:49)
--- NOTE | 2023-11-04 08:30 | PC.NURSE ---
transfusion now infusing at 125 cc/hr via pump. no reactions or pt distress.
--- NOTE | 2023-11-04 11:27 | PC.NURSE ---
transfusion now infusing at 125 cc/hr via pump. no reactions or pt distress first 15 mins
[2023-11-04] MEDS: FUROSEMIDE INJ 40 MG/4 ML VIAL 20 MG IV PUSH (11:42)
== END 2023-11-24 23:59 | disposition home or self-care (01) ==
LOC: ANHCPCTRAN 07:13
PROVIDERS: PCP Family Medicine; Visit Provider Internal Medicine Hematology & Oncology
DX: C34.90 Malignant neoplasm of unspecified part of unspecified bronchus or lung (principal)
CPT/HCPCS: 36415; 36430; 86850; 86900; 86901; 86923; A9270; J1642; J1940; J7050; P9016

== ENCOUNTER 2023-11-09 22:46 | Emergency (ER) | payer BC, SELFPAY ==
--- NOTE | ~2023-11-09 | CT_ITS ---
Noncontrast CT scan of the lumbar spine CLINICAL HISTORY: Fracture, undergoing radiation therapy TECHNIQUE: Axial noncontrast imaging of the lumbar spine was performed. Sagittal and coronal reformat wisam images were constructed. Dose reduction technique was used on this scan by utilizing automated ex posure control and iterative reconstruction technique. The dose-length product (DLP) was 798.52 mGy-c m. COMPARISON: 10/14/2023 FINDINGS: There is a probable pathologic fracture through the junction of the L4 vertebral body and t he right pedicle, surrounding lytic lesion extending horn the posterior right L4 vertebral body into the pedicle and lamina on the right side, as well as the right L4 transverse process. Lesion appears essentially stable from prior exam. There is an extensive destructive lesion with pathologic fracture involving the S1 level extending in to the left sacral alae in this region, also essentially unchanged from prior exam. No new Hologic lesion identified is compared to prior exam the lumbar spine. At L1-L2, there is minimal disc bulge. No spinal canal stenosis or neural foraminal narrowing. At L2-L3, there is minimal disc bulge. No spinal canal stenosis or neural foraminal narrowing. At L3-L4, there is mild disc bulge and moderate facet arthropathy. There is probable mild to moderate central canal stenosis. There is mild to moderate left neural foraminal narrowing, and moderate to a dvanced right neural foraminal narrowing. At L4-L5, there is disc bulge and moderate facet arthropathy, probable mild central canal stenosis. T here is probable advanced right neural foraminal narrowing. Left neural foramen preserved. At L5-S1, there is probable disc bulge versus possibility of epidural extension of the sacral patholo gic lesion. There is probable moderate to advanced central canal stenosis at this level. There is mod erate right neural foraminal narrowing. No other distinct paravertebral soft tissue abnormality identified. Bilateral adrenal masses are note d. Impression: Osseous findings overall are prior without significant change since 10/14/2023. There is underlying p athologic lesion of the posterior right L4 vertebral body extending to the right posterior elements, with probable pathologic fractures of the right L4 pedicle. Extensive destruction lesion with patholo gic fracture involving the S1 level and left sacral alae. Degenerative spondylitic changes, as above. Bilateral adrenal masses are compatible with metastatic disease. Please refer to separately reported abdominal pelvic CT for further details. Reviewed, dictated and finalized at location [facility] Impression: Osseous findings overall are prior without significant change since 10/14/2023. There is underlying pathologic lesion of the posterior right L4 vertebral body extending to the right posterior elements, with probable pathologic fractures of the right L4 pedicle. Extensive destruction lesion with pathologic fracture involving the S1 level and left sacral alae. Degenerative spondylitic changes, as above. Bilateral adrenal masses are compatible with metastatic disease. Please refer t o separately reported abdominal pelvic CT for further details.
--- NOTE | ~2023-11-09 | CT_ITS ---
CT of the Abdomen and Pelvis: Indication: Abdominal pain Technique: 2.5 mm axial scans were obtained through the abdomen and pelvis following intravenous adm inistration of 100 cc of Omnipaque 350. Dose reduction technique was used on this scan by utilizing a utomated exposure control and iterative reconstruction technique. The dose-length product (DLP) was 5 58.31 mGy-cm. COMPARISON: 10/14/2023 Findings: Scans through the lung bases demonstrates stable 2.8 cm lobulated left lower lobe pulmonar y nodule with focal central cavitation. Minimal left pleural effusion is present.. The liver, spleen, pancreas, gallbladder are within normal limits. Large bilateral adrenal masses are present, minimally increased from prior exam. Additional metastatic implant present in the splenic h ilum is present, also mildly increased from prior exam. There are multiple peritoneal implants, mildl y increased in size from prior exam. Bilateral renal cysts are present, with relatively atrophic righ t kidney. There are atherosclerotic calcifications of the aorta. No lymphadenopathy. There is probable extensive large bowel wall thickening. No bowel obstruction. No abscess or free air . Images through the pelvis were performed. Stable 2.4 cm mass in the posterior right aspect of the uri nary bladder. Prostate gland unremarkable. No ascites. There are stable destructive lesions of the sacrum, L4, and anterior left acetabulum. Impression: Extensive large bowel wall thickening is suggestive of infectious or inflammatory colitis. Correlate clinically. No bowel obstruction. 2.8 cm left lower lobe pulmonary nodule, compatible with presumed primary bronchogenic carcinoma, sim ilar to prior exam. Extensive metastatic disease, including bilateral adrenal lesions, multiple perit ochoa implants, and lytic osseous lesions, minimally progressed from prior exam. Stable 2.4 cm posterior urinary bladder mass, compatible either primary versus metastatic neoplasm. Small left pleural effusion. Reviewed, dictated and finalized at [facility]. [employer] Impression: Extensive large bowel wall thickening is suggestive of infectious or inflammato ry colitis. Correlate clinically. No bowel obstruction. 2.8 cm left lower lobe pulmonary nodule, compatible with presumed primary bronc hogenic carcinoma, similar to prior exam. Extensive metastatic disease, includi ng bilateral adrenal lesions, multiple peritoneal implants, and lytic osseous l esions, minimally progressed from prior exam. Stable 2.4 cm posterior urinary bladder mass, compatible either primary versus metastatic neoplasm. Small left pleural effusion.
[2023-11-09 22:47] VITALS: BP 133/68; PULSE 85; RESP 20; TEMP 36.4; O2SAT 97
[2023-11-10] MEDS: ONDANSETRON INJ 4 MG/2 ML VIAL IV PUSH (00:44)
[2023-11-10] MEDS: HYDROmorphone HCL INJ (*CRX) 1 MG/ML SYR IV PUSH ×2 (00:44→02:39)
[2023-11-10 00:56] LABS: Basophils Percent Auto 0.2 % (0.2-1.2); Eosinophils Absolute Auto 0.2 K/mm3 (0-0.3); Eosinophils Percent Auto 3.9 % (0-4.4); Hemoglobin 8.8 g/dL (14.0-18.0); Immature Granulocyte Absolute 0.05 K/mm3 (0.00-0.031); Immature Granulocyte Percent A 1.2 % (0-0.5); Lymphocytes Absolute Auto 0.37 K/mm3 (0.9-3.2); Lymphocytes Percent Auto 9.1 % (18.3-44.2); Mean Corpuscular HGB Conc 31.4 g/dl (32-36); Mean Corpuscular Hemoglobin 28.1 pg (26-34); Mean Corpuscular Volume 89.5 fl (80-100); Monocytes Absolute Auto 0.1 K/mm3 (0.1-0.6); Monocytes Percent Auto 1.5 % (2.6-8.5); Neutrophils Absolute Auto 3.4 K/mm3 (1.3-6.7); Neutrophils Percent Auto 84.1 % (45.5-73.1); Platelet Count Result 109 k/mm3 (150-375); Red Blood Count 3.13 M/mm3 (4.6-6.20); Red Cell Distribution Width 16.5 % (11.5-14.5); White Blood Count 4.1 K/mm3 (4.5-10.0)
[2023-11-10 01:01] LABS: Prothrombin Time 13.7 Seconds (11.1-14.7)
[2023-11-10 01:03] LABS: Lactic Acid Reflex 0.9 mmol/L (0.7-2.0); Partial Thromboplastin Time 32.6 SECONDS (22.3-36.8)
--- NOTE | 2023-11-10 01:03 | ED.GENADULT ---
HPI - General Adult General Chief complaint: Back Pain/Injury Stated complaint: back pain Time Seen by Provider: 11/10/23 00:21 History of Present Illness HPI narrative: Patient is 68-year-old gentleman who presents emergency department with chief complaint of pain in back abdominal and swelling in his legs. The patient was diagnosed with metastatic lesions to the bone and also the brain the patient is undergoing radiation and has had 10 treatments the patient states that this evening he started having severe pain in his back and his lower abdomen. Patient reports pain is not improved by anything reports these on 7.5 mg hydrocodones at home patient denies bowel or bladder dysfunction denies saddle anesthesia Related Data Home Medications Medication Instructions Recorded Confirmed cholecalciferol (vitamin D3) 125 125 mcg PO DAILY 02/14/22 11/05/23 mcg (5,000 unit) capsule allopurinol 300 mg tablet 300 mg PO DAILY 09/07/23 11/05/23 tamsulosin 0.4 mg capsule 0.4 mg PO DAILY 09/07/23 11/05/23 valsartan 80 mg tablet 80 mg PO DAILY 09/07/23 11/05/23 amlodipine 5 mg tablet 5 mg PO DAILY 09/24/23 11/05/23 hydrocodone 10 mg-acetaminophen 1 tablet PO Q6H PRN Pain 09/24/23 11/05/23 325 mg tablet ferrous sulfate 325 mg (65 mg 325 mg PO DAILY 11/04/23 11/05/23 iron) tablet vitamin B complex (B 1 tablet PO DAILY 11/04/23 11/05/23 Complex-Vitamin B12 tablet) Allergies Allergy/AdvReac Type Severity Reaction Status Date / Time morphine AdvReac Intermediate Violent Verified 11/09/23 22:51 Occlxxc-RUR-[id number] Reductase AdvReac Intermediate myalgia Verified 11/09/23 22:51 Inhibitor Review of Systems Review of Systems: A 10 system review of systems was completed on the patient and is negative except for what is stated in the HPI. Nursing and ancillary documentation was reviewed. [facility], [facility] Past Medical History Medical History Abdominal wall bulge Adrenal mass Bilateral leg edema Blood in urine Lumbar vertebral fracture Metastatic disease Olecranon bursitis, right elbow Pulmonary nodule Surgical History Surgical History History of kidney surgery 2000 per patient History of major abdominal surgery Family History Family History Father Family history of malignant neoplasm of thyroid Other Carcinoma of colon HLD (hyperlipidemia) Hypertension Social History Social History Smoking packs per day: 1 Smoking cigarettes per day: 20.0 Years smoked: 44 Smoking pack-years: 44.00 Smoking status: Former smoker Tobacco type: cigarettes Smoking end date: 10/19/19 Additional smoking assessment comments: Quit in 2019 Alcohol intake: current Drinks per week: 3 Substance use: never Substance use type: does not use Lack of Transportation: No Lack of Food: Never True Current Housing: I Have Housing Concerned About Future Housing: No Difficulty Paying Gas/Electric Bills: No Difficulty Paying for Meds: No Currently Unemployed: No Education: Don't Know Difficulty w/ Childcare or Family Care: No Living arrangements: with family Spiritual care concerns: No Exam Narrative: GENERAL: Well-appearing, well-nourished, and in no acute distress. HEAD: Normocephalic, atraumatic. EYES: PERRLA and EOMI. ENT: Nares clear, no rhinorrhea or epistaxis. Mucous membranes moist. NECK: Supple. CHEST: Clear to auscultation. No respiratory distress. HEART: Regular rate and rhythm. No murmur heard. Normal peripheral pulses. ABDOMEN: Soft, nontender, nondistended, normal active bowel sounds. EXTREMITIES: Normal range of motion. No edema. SKIN: Warm, dry, no rash. NEURO: No focal deficits. Alert and oriented x3. PSYCH: Normal mood and affect.
[2023-11-10 01:04] LABS: Alanine Aminotransferase 12 U/L (6-50); Albumin Level 2.4 g/dL (3.5-5.1); Alkaline Phosphatase 62 U/L (38-126); Anion Gap 4 mmol/L (8-16); Aspartate Amino Transferase 21 U/L (17-59); Blood Urea Nitrogen 18 mg/dL (9-20); Calcium 7.5 mg/dL (8.4-10.2); Carbon Dioxide 28 mmol/L (22-30); Chloride 99 mmol/L (98-107); Estimated CRCL calculation 84 ml/min; Estimated Glomerular Filt Rate > 60; Glucose 83 mg/dL (65-110); Potassium 3.5 mmol/L (3.4-5.0); Sodium 131 mmol/L (137-145)
[2023-11-10 02:23] LABS: Appearance Urine Clear (Clear); Bacteria Urine None Seen /hpf; Bilirubin Urine Negative (Negative); Blood Urine Negative (Negative); Color Urine Yellow (Yellow); Glucose Urine UA Negative (Negative); Ketones Urine Negative (Negative); Leukocyte Esterase Ur Negative LEU/UL (Negative); Nitrate Urine Negative (Negative); Non Pathogenic Casts 0-2; Protein Urine Trace mg/dL (Negative); RBC Urine 0-2 /hpf (0-2); Specific Grav Ur 1.023 (1.001-1.035); Squamous Epithelial Cell Urine None seen /hpf (Few); WBC Urine 0-5 /hpf; pH Urine >=9.0 (5.0-9.0)
[2023-11-10 02:39] LABS: Add Urine Microscopic? YES
[2023-11-10 02:45] VITALS: BP 119/71; PULSE 78; RESP 15; O2SAT 100
== END 2023-11-10 04:05 | disposition home or self-care (01) ==
PROVIDERS: Emergency Provider Emergency Medicine; PCP Family Medicine
DX: M54.50 Low back pain, unspecified (principal); C34.90 Malignant neoplasm of unspecified part of unspecified bronchus or lung; C79.51 Secondary malignant neoplasm of bone; C79.31 Secondary malignant neoplasm of brain; Z87.891 Personal history of nicotine dependence; R93.3 Abnormal findings on diagnostic imaging of other parts of digestive tract; N32.89 Other specified disorders of bladder; C79.72 Secondary malignant neoplasm of left adrenal gland; C79.71 Secondary malignant neoplasm of right adrenal gland; C78.6 Secondary malignant neoplasm of retroperitoneum and peritoneum
CPT/HCPCS: 36415; 72131; 74177; 80053; 81001; 83605; 85025; 85610; 85730; 96374; 96375; 99284; J1170; J2405; Q9967